=== PATIENT | male | born 1950 | race African-American/Black ===

== ENCOUNTER 2018-01-21 19:19 | Emergency (ER) | payer MEDICARE ==
[~2018-01-21] VITALS: Ht 185.4 cm; Wt 77.3 kg
[2018-01-21 19:22] VITALS: Ht 185.4 cm; Wt 77.3 kg
[2018-01-21] MEDS ORDERED: ULTRAM50 MG PO (19:58)
[2018-01-21 21:38] VITALS: BP 157/99
== END 2018-01-21 21:38 | disposition home or self-care (01) ==
LOC: D.ER 19:19
DX: S09.90XA Unspecified injury of head, initial encounter (principal); Y04.2XXA Assault by strike against or bumped into by another person, initial encounter; Y93.89 Activity, other specified; Y92.524 Gas station as the place of occurrence of the external cause; I10 Essential (primary) hypertension; S49.91XA Unspecified injury of right shoulder and upper arm, initial encounter; J44.9 Chronic obstructive pulmonary disease, unspecified; F17.200 Nicotine dependence, unspecified, uncomplicated